=== PATIENT | female | born 2000 | race Caucasian/White ===

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

== ENCOUNTER 2018-02-19 11:59 | Emergency (ER) | payer MEDICAID, OTHER, SELFPAY | END 2018-02-19 13:01 | disposition home or self-care (01) | LOC: M ED 11:59 | DX: H66.92 Otitis media, unspecified, left ear (principal); F41.9 Anxiety disorder, unspecified; Z79.899 Other long term (current) drug therapy | CPT/HCPCS: 99282 ==

== ENCOUNTER 2019-05-03 15:04 | Emergency (ER) | payer MEDICAID, OTHER ==
[~2019-05-03] VITALS: Ht 162.6 cm; Wt 84.7 kg
[~2019-05-03 15:04] MED LIST: IBUP-1022 PO; OMEP40CA97 PO
[2019-05-03] MEDS ORDERED: PARO5TAB (15:18)
[2019-05-03 20:20] VITALS: BP 120/66
== END 2019-05-03 20:28 | disposition home or self-care (01) ==
LOC: M ED 15:04
DX: S46.819A Strain of other muscles, fascia and tendons at shoulder and upper arm level, unspecified arm, initial encounter (principal); X58.XXXA Exposure to other specified factors, initial encounter; Z79.83 Long term (current) use of bisphosphonates; Z79.899 Other long term (current) drug therapy

== ENCOUNTER → 2019-06-10 | Outpatient (CLI) | payer OTHER ==
[~2019-06-10] MED LIST changes: +PARO5TAB
[2019-06-10 13:10] LABS: BASO % 0.3 % (0.0-1.0); EOS # 0.1 10^3/uL (0.0-0.5); EOS % 0.8 % (0.0-3.0); HEMATOCRIT 42.1 % (36.0-47.0); HEMOGLOBIN 13.6 g/dl (12.0-15.5); LYMPH # 1.9 10^3/uL (1.5-5.0); LYMPH % 26.3 % (24.0-44.0); MEAN CORPUSCULAR HEMOGLOBIN 29.8 pg (27.0-33.0); MEAN CORPUSCULAR HGB CONC 32.3 g/dl (32.0-36.5); MEAN CORPUSCULAR VOLUME 92.1 fl (80.0-96.0); MONO # 0.6 10^3/uL (0.0-0.8); NEUTROPHILS # 4.8 10^3/uL (1.5-8.5); NEUTROPHILS % 64.3 % (36.0-66.0); PLATELET COUNT, AUTOMATED 218 10^3/uL (150-450); RED BLOOD COUNT 4.57 10^6/uL (4.00-5.40); WHITE BLOOD COUNT 7.4 10^3/uL (4.0-10.0)
[2019-06-10 13:44] LABS: ALBUMIN 4.2 GM/DL (3.2-5.2); ALT/SGPT 16 U/L (12-78); BILIRUBIN,TOTAL 0.3 MG/DL (0.2-1.0); BLOOD UREA NITROGEN 11 MG/DL (7-18); CALCIUM LEVEL 9.2 MG/DL (8.5-10.1); CARBON DIOXIDE LEVEL 26 MEQ/L (21-32); CHLORIDE LEVEL 105 MEQ/L (98-107); CHOLESTEROL LEVEL 137 MG/DL (<200); CHOLESTEROL RISK RATIO 2.403 (<5); CREATININE FOR GFR 0.59 MG/DL (0.55-1.30); FREE T4 1.02 NG/DL (0.76-1.46); GLOMERULAR FILTRATION RATE > 60.0 (>60); GLUCOSE, FASTING 78 MG/DL (70-100); HDL CHOLESTEROL 57 MG/DL (>40); LDL CHOLESTEROL 63 MG/DL (<100); NON-HDL-C 80 MG/DL; POTASSIUM SERUM 3.9 MEQ/L (3.5-5.1); SODIUM LEVEL 139 MEQ/L (136-145); TOTAL 25(OH) VITAMIN D 12.2 NG/ML (30.0-100.0); TOTAL PROTEIN 7.4 GM/DL (6.4-8.2); TRIGLYCERIDES LEVEL 86 MG/DL (<150)
== END ==
LOC: M LAB 11:41
PROVIDERS: ATTEND Family Medicine Addiction Medicine
DX: Z00.00 Encounter for general adult medical examination without abnormal findings (principal)

== ENCOUNTER → 2020-11-16 | Outpatient (CLI) | payer OTHER ==
[~2020-11-16] MED LIST changes: +OMEP40CA4 PO; -OMEP40CA97 PO
--- NOTE | 2020-11-16 17:16 | REP ---
INDICATION: CERVICALGIA. COMPARISON: None. TECHNIQUE: Three AP and lateral views cervical spine. FINDINGS: There is no compression fracture or malalignment. There is straightening of the normal cervical lordosis. There is no prevertebral soft tissue swelling. Disc spaces are well preserved. IMPRESSION: Straightening of normal cervical lordosis. Otherwise unremarkable cervical spine. <Electronically signed by Vicente Cohen > 11/16/20 [id number]
--- NOTE | 2020-11-16 17:18 | REP ---
INDICATION: CERVICALGIA COMPARISON: None. TECHNIQUE: Three views right shoulder. FINDINGS: There is no acute fracture or bone lesion. The distal end of the clavicle is mildly elevated which may indicate mild AC joint separation. No other abnormalities are seen. IMPRESSION: Mild elevation of the distal end of the right clavicle may represent mild AC joint separation. <Electronically signed by Vicente Cohen > 11/16/20 [id number]
== END ==
LOC: M RAD 16:36
PROVIDERS: ATTEND Physician Assistant
DX: M54.2 Cervicalgia (principal); M25.511 Pain in right shoulder

== ENCOUNTER 2021-01-22 01:28 | Emergency (ER) | payer OTHER ==
[~2021-01-22] VITALS: Ht 160 cm; Wt 85.4 kg
[~2021-01-22 01:28] MED LIST changes: +FAMO20TA5; +LORA-674; +PANT40TA29 PO; +PARO20TA3
--- NOTE | 2021-01-22 04:33 | REPVR ---
PROCEDURE INFORMATION: Exam: XR Right Shoulder Exam date and time: 01/22/2021 3:21 AM Age: 20 years old Clinical indication: Other: Right shoulder; Additional info: Right shoulder injury TECHNIQUE: Imaging protocol: XR Right shoulder. Views: 2 or more views. COMPARISON: CR Shoulder, complete 11/16/2020 4:57 PM FINDINGS: Bones/joints: There is no evidence of acute fracture or dislocation. The glenohumeral joint and acromioclavicular joint appear unremarkable. Soft tissues: The soft tissues appear unremarkable. IMPRESSION: Normal appearance of the right shoulder. Electronically signed by: Jayla Ferguson On 01/22/2021 04:33:25 AM
[2021-01-22] MEDS ORDERED: NAPR-837 PO (06:22)
[2021-01-22] MEDS ORDERED: CYCL5TAB PO (06:22)
[2021-01-22 07:04] VITALS: BP 107/70
== END 2021-01-22 07:05 | disposition home or self-care (01) ==
LOC: M ED 01:28
DX: S43.401A Unspecified sprain of right shoulder joint, initial encounter (principal); Y92.9 Unspecified place or not applicable; Y93.9 Activity, unspecified; Y99.9 Unspecified external cause status

== ENCOUNTER → 2021-04-05 | Outpatient (REF) ==
[~2021-04-05] MED LIST changes: +CYCL5TAB PO; +NAPR-837 PO
[2021-04-05 14:05] LABS: RSV AMPLIFICATION NEGATIVE (NEGATIVE)
== END ==
LOC: M EMP 11:57
PROVIDERS: ATTEND Family Medicine
DX: Z11.52 Encounter for screening for COVID-19 (principal)

== ENCOUNTER 2021-07-07 17:15 | Emergency (ER) | payer OTHER ==
[~2021-07-07] VITALS: Ht 162.6 cm; Wt 88.6 kg
[2021-07-07 17:40] VITALS: BP 115/69
[2021-07-07] MEDS ORDERED: SUCRALFATE 1 GM TAB PO ONE (17:40)
[2021-07-07] MEDS ORDERED: KETOROLAC 30 MG/ML 1ML VIAL IV ONE (17:40)
[2021-07-07] MEDS ORDERED: GI COCKTAIL 50ML BTL(HYOSCYAMINE/MAALOX/LIDOCAINE VISCOUS)(1:3:1) PO ONE (17:40)
[2021-07-07] MEDS ORDERED: ONDANSETRON 4MG/2ML VIAL IV ONE (17:40)
[2021-07-07] MEDS ORDERED: PANTOPRAZOLE 40MG VIAL (C9113 PER 1) IV ONE (17:40)
[2021-07-07] MEDS ORDERED: NS 1,000 ML IV ONE (17:40)
[2021-07-07 18:16] LABS: BASO % 0.2 % (0.0-1.0); HEMATOCRIT 43.7 % (36.0-47.0); HEMOGLOBIN 14.5 g/dl (12.0-15.5); LYMPH # 0.4 10^3/uL (1.5-5.0); LYMPH % 3.7 % (24.0-44.0); MEAN CORPUSCULAR HEMOGLOBIN 29.1 pg (27.0-33.0); MEAN CORPUSCULAR HGB CONC 33.2 g/dl (32.0-36.5); MEAN CORPUSCULAR VOLUME 87.8 fl (80.0-96.0); MONO # 0.3 10^3/uL (0.0-0.8); MONO % 2.7 % (2.0-8.0); NEUTROPHILS # 9.6 10^3/uL (1.5-8.5); NEUTROPHILS % 93.1 % (36.0-66.0); PLATELET COUNT, AUTOMATED 156 10^3/uL (150-450); RED BLOOD COUNT 4.98 10^6/uL (4.00-5.40); WHITE BLOOD COUNT 10.3 10^3/uL (4.0-10.0)
[2021-07-07 18:43] LABS: ERYTHROCYTE SEDIMENTATION RATE 4 mm/hr (0-20)
[2021-07-07 19:26] LABS: ALBUMIN 3.7 GM/DL (3.2-5.2); ALT/SGPT 22 U/L (12-78); BILIRUBIN,DIRECT 0.2 MG/DL (0.0-0.2); BILIRUBIN,TOTAL 0.7 MG/DL (0.2-1.0); BLOOD UREA NITROGEN 17 MG/DL (7-18); CALCIUM LEVEL 8.2 MG/DL (8.5-10.1); CARBON DIOXIDE LEVEL 25 MEQ/L (21-32); CHLORIDE LEVEL 107 MEQ/L (98-107); CREATININE FOR GFR 0.56 MG/DL (0.55-1.30); GLOMERULAR FILTRATION RATE > 60.0 (>60); GLUCOSE, FASTING 100 MG/DL (70-100); LIPASE 57 U/L (73-393); POTASSIUM SERUM 3.5 MEQ/L (3.5-5.1); SODIUM LEVEL 138 MEQ/L (136-145); TOTAL PROTEIN 6.9 GM/DL (6.4-8.2)
[2021-07-07] MEDS ORDERED: ISOVUE-370 76% 100ML VIAL As Ordered ONE (19:32)
[2021-07-07] MEDS ORDERED: CARA1TAB6 PO (20:56)
[2021-07-07] MEDS ORDERED: ONDA4TAB6 PO (20:56)
== END 2021-07-07 21:48 | disposition home or self-care (01) ==
LOC: M ED 17:15 → EDBD 17:15 → M ED 21:48
DX: R10.84 Generalized abdominal pain (principal); R50.9 Fever, unspecified; R11.2 Nausea with vomiting, unspecified; Z79.899 Other long term (current) drug therapy
CPT/HCPCS: 71045; 74177; 80048; 80076; 83605; 83690; 84702; 85025; 85652; 86140; 87040; 96361; 96374; 99284; C9113; J1885; J2405; Q9967

== ENCOUNTER 2022-12-23 19:29 | Emergency (ER) | payer OTHER ==
[~2022-12-23] VITALS: Ht 165.1 cm; Wt 84.7 kg
[~2022-12-23 19:29] MED LIST changes: +CARA1TAB6 PO; +ONDA4TAB6 PO
[2022-12-23 19:36] VITALS: BP 131/74; TEMP 98.8; O2SAT 100
[2022-12-23 20:57] LABS: BASO % 0.2 % (0.0-1.0); EOS % 0.2 % (0.0-3.0); HEMATOCRIT 44.1 % (36.0-47.0); HEMOGLOBIN 14.4 g/dl (12.0-15.5); LYMPH # 1.7 10^3/uL (1.5-5.0); LYMPH % 17.1 % (24.0-44.0); MEAN CORPUSCULAR HEMOGLOBIN 29.1 pg (27.0-33.0); MEAN CORPUSCULAR HGB CONC 32.7 g/dl (32.0-36.5); MEAN CORPUSCULAR VOLUME 89.3 fl (80.0-96.0); MONO # 0.5 10^3/uL (0.0-0.8); MONO % 4.8 % (2.0-8.0); NEUTROPHILS # 7.7 10^3/uL (1.5-8.5); NEUTROPHILS % 77.5 % (36.0-66.0); PLATELET COUNT, AUTOMATED 219 10^3/uL (150-450); RED BLOOD COUNT 4.94 10^6/uL (4.00-5.40); WHITE BLOOD COUNT 9.9 10^3/uL (4.0-10.0)
[2022-12-23 21:02] LABS: LIPASE 30 U/L (12-53)
[2022-12-23 21:05] LABS: ALBUMIN 4.6 G/DL (3.2-5.2); ALKALINE PHOSPHATASE 84 U/L (46-116); ALT/SGPT 17 U/L (7.0-40); AST/SGOT 10 U/L (<34); BILIRUBIN,DIRECT 0.3 MG/DL (<0.4); BILIRUBIN,TOTAL 0.6 MG/DL (0.3-1.2); BLOOD UREA NITROGEN 8 MG/DL (9-23); CALCIUM LEVEL 9.6 MG/DL (8.5-10.1); CARBON DIOXIDE LEVEL 24 MMOL/L (20-31); CHLORIDE LEVEL 105 MMOL/L (98-107); CREATININE FOR GFR 0.56 MG/DL (0.55-1.30); GLOMERULAR FILTRATION RATE > 60.0 (>60); GLUCOSE, FASTING 84 MG/DL (60-100); POTASSIUM SERUM 3.8 MMOL/L (3.5-5.1); SODIUM LEVEL 140 MMOL/L (136-145)
[2022-12-24 09:56] LABS: URINE PREG TEST NEGATIVE (NEGATIVE)
== END 2022-12-24 03:30 | disposition left against medical advice (07) ==
LOC: M ED 19:29
DX: Z53.21 Procedure and treatment not carried out due to patient leaving prior to being seen by health care provider (principal)

== ENCOUNTER → 2023-02-20 | Outpatient (REF) | payer OTHER ==
[~2023-02-20] MED LIST changes: +LORA-1041; -LORA-674
[2023-02-20 18:18] LABS: BASO % 0.2 % (0.0-1.0); EOS # 0.1 10^3/uL (0.0-0.5); EOS % 0.9 % (0.0-3.0); HEMATOCRIT 39.1 % (36.0-47.0); HEMOGLOBIN 13.1 g/dl (12.0-15.5); LYMPH # 1.7 10^3/uL (1.5-5.0); LYMPH % 29.7 % (24.0-44.0); MEAN CORPUSCULAR HEMOGLOBIN 30.2 pg (27.0-33.0); MEAN CORPUSCULAR HGB CONC 33.5 g/dl (32.0-36.5); MEAN CORPUSCULAR VOLUME 90.1 fl (80.0-96.0); MONO # 0.5 10^3/uL (0.0-0.8); MONO % 8.1 % (2.0-8.0); NEUTROPHILS # 3.5 10^3/uL (1.5-8.5); NEUTROPHILS % 60.9 % (36.0-66.0); PLATELET COUNT, AUTOMATED 227 10^3/uL (150-450); RED BLOOD COUNT 4.34 10^6/uL (4.00-5.40); WHITE BLOOD COUNT 5.7 10^3/uL (4.0-10.0)
[2023-02-21 02:40] LABS: HEMOGLOBIN A1c 4.7 % (4.0-6.0)
[2023-02-21 04:02] LABS: ALBUMIN 4.2 G/DL (3.2-5.2); ALKALINE PHOSPHATASE 73 U/L (46-116); ALT/SGPT 13 U/L (7.0-40); AST/SGOT 11 U/L (<34); BILIRUBIN,TOTAL 0.7 MG/DL (0.3-1.2); BLOOD UREA NITROGEN 11 MG/DL (9-23); CALCIUM LEVEL 9.4 MG/DL (8.5-10.1); CARBON DIOXIDE LEVEL 26 MMOL/L (20-31); CHLORIDE LEVEL 106 MMOL/L (98-107); CHOLESTEROL LEVEL 133 MG/DL (<200); CHOLESTEROL RISK RATIO 2.11 (<5); CREATININE FOR GFR 0.67 MG/DL (0.55-1.30); GLOMERULAR FILTRATION RATE > 60.0 (>60); GLUCOSE, FASTING 96 MG/DL (60-100); HDL CHOLESTEROL 62.9 MG/DL (>40); LDL CHOLESTEROL 60.3 MG/DL (<100); NON-HDL-C 70.1 MG/DL; POTASSIUM SERUM 4.3 MMOL/L (3.5-5.1); SODIUM LEVEL 140 MMOL/L (136-145); THYROID STIMULATING HORMONE 5.869 uIU/ML (0.55-4.78); TOTAL 25(OH) VITAMIN D 18.2 NG/ML (20.0-100.0); TOTAL PROTEIN 7.3 G/DL (5.7-8.2); TRIGLYCERIDES LEVEL 49 MG/DL (<150)
== END ==
LOC: M LAB REF 17:46
PROVIDERS: ATTEND Nurse Practitioner Family
DX: E66.3 Overweight (principal); E55.9 Vitamin D deficiency, unspecified; Z11.9 Encounter for screening for infectious and parasitic diseases, unspecified; R53.83 Other fatigue

== ENCOUNTER → 2024-03-11 | Outpatient (REF) | payer OTHER ==
[~2024-03-11] MED LIST changes: -CYCL5TAB PO; +CYCL5TAB4 PO; +ONDA-282 PO; -ONDA4TAB6 PO
== END ==
LOC: M LAB REF 17:09
PROVIDERS: ATTEND Nurse Practitioner Family
DX: R89.1 Abnormal level of hormones in specimens from other organs, systems and tissues (principal)

== ENCOUNTER 2024-06-10 00:25 | Emergency (ER) | payer OTHER ==
[~2024-06-10] VITALS: Ht 165.1 cm; Wt 71.9 kg
[2024-06-10] MEDS ORDERED: VITA200032 (00:42)
[2024-06-10 01:19] LABS: BASO % 0.2 % (0.0-1.0); EOS # 0.1 10^3/uL (0.0-0.5); EOS % 0.5 % (0.0-3.0); HEMATOCRIT 39.4 % (36.0-47.0); HEMOGLOBIN 12.9 g/dl (12.0-15.5); LYMPH # 0.4 10^3/uL (1.5-5.0); LYMPH % 3.1 % (24.0-44.0); MEAN CORPUSCULAR HEMOGLOBIN 30.1 pg (27.0-33.0); MEAN CORPUSCULAR HGB CONC 32.7 g/dl (32.0-36.5); MEAN CORPUSCULAR VOLUME 92.1 fl (80.0-96.0); MONO # 0.4 10^3/uL (0.0-0.8); MONO % 2.6 % (2.0-8.0); NEUTROPHILS # 12.4 10^3/uL (1.5-8.5); NEUTROPHILS % 93.1 % (36.0-66.0); PLATELET COUNT, AUTOMATED 159 10^3/uL (150-450); RED BLOOD COUNT 4.28 10^6/uL (4.00-5.40); WHITE BLOOD COUNT 13.3 10^3/uL (4.0-10.0)
[2024-06-10 01:42] LABS: HCG, SERUM QUALITATIVE NEGATIVE (NEGATIVE); RSV AMPLIFICATION NEGATIVE (NEGATIVE)
[2024-06-10 01:53] LABS: LIPASE 105 U/L (12-53)
[2024-06-10 01:55] LABS: ALBUMIN 4.1 G/DL (3.2-5.2); ALKALINE PHOSPHATASE 61 U/L (35-104); ALT/SGPT 16 U/L (7.0-40); AST/SGOT 19 U/L (<34); BILIRUBIN,DIRECT 0.3 MG/DL (<0.4); BILIRUBIN,TOTAL 0.7 MG/DL (0.3-1.2); BLOOD UREA NITROGEN 11 MG/DL (9-23); CALCIUM LEVEL 8.5 MG/DL (8.5-10.1); CARBON DIOXIDE LEVEL 24 MMOL/L (20-31); CHLORIDE LEVEL 107 MMOL/L (98-107); CREATININE FOR GFR 0.67 MG/DL (0.55-1.30); GLOMERULAR FILTRATION RATE > 60.0 (>60); GLUCOSE, FASTING 110 MG/DL (60-100); POTASSIUM SERUM 3.8 MMOL/L (3.5-5.1); SODIUM LEVEL 142 MMOL/L (136-145); TOTAL PROTEIN 6.9 G/DL (5.7-8.2)
[2024-06-10] MEDS: METOCLOPRAMIDE INJ 10MG/2ML VIAL IV ONE (02:23)
[2024-06-10] MEDS ORDERED: REGL10TA6 PO (02:37)
[2024-06-10] MEDS ORDERED: ONDA-282 PO (02:37)
[2024-06-10 03:00] VITALS: BP 91/52; TEMP 97.5; O2SAT 99
== END 2024-06-10 03:08 | disposition home or self-care (01) ==
LOC: M ED 00:25 → EDBD 00:25 → M ED 03:08
DX: K52.9 Noninfective gastroenteritis and colitis, unspecified (principal); K21.9 Gastro-esophageal reflux disease without esophagitis; F12.10 Cannabis abuse, uncomplicated; Z79.899 Other long term (current) drug therapy; Z79.83 Long term (current) use of bisphosphonates
CPT/HCPCS: 80048; 80076; 83690; 84703; 85025; 87631; 96374; 99284; J2765

== ENCOUNTER → 2024-08-25 | Outpatient (REF) | payer OTHER ==
[~2024-08-25] MED LIST changes: +REGL10TA6 PO; +VITA200032
== END ==
LOC: M LAB REF 18:15
PROVIDERS: ATTEND Physician Assistant Medical
DX: J02.9 Acute pharyngitis, unspecified (principal)